=== PATIENT | female | born 1995 | race Two or more races ===

== ENCOUNTER 2025-02-12 17:07 | Emergency (ER) | payer OTHER, SELFPAY ==
[2025-02-12 17:14] VITALS: BP 122/83; PULSE 85; RESP 16; TEMP 36.5; O2SAT 99
--- NOTE | 2025-02-12 20:22 | PC.NURSE ---
pt observed walking out of er room12 with family. nad noted. 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
== END 2025-02-12 20:22 | disposition left against medical advice (07) ==
DX: R10.9 Unspecified abdominal pain (principal)
CPT/HCPCS: 99199